=== PATIENT | female | born 1940 | race Two or more races ===

== ENCOUNTER 2019-01-02 10:29 | Outpatient (CLI) | payer OTHER | END 2019-01-02 10:48 | disposition home or self-care (01) | LOC: MAMO-SONO 10:29 | DX: N60.11 Diffuse cystic mastopathy of right breast (principal); N60.12 Diffuse cystic mastopathy of left breast; Z12.31 Encounter for screening mammogram for malignant neoplasm of breast; Z87.898 Personal history of other specified conditions ==